=== PATIENT | female | born 1995 | race American Indian/Alaskan Native ===

== ENCOUNTER 2018-04-17 18:02 | Emergency (ER) | payer MEDICAID ==
[~2018-04-17] VITALS: Ht 157.5 cm; Wt 67.0 kg
[~2018-04-17 18:02] MED LIST: ESCI10TA45 PO; ZOF4T PO
[2018-04-17 18:53] VITALS: BP 139/75
[2018-04-17 19:08] LABS: CLARITY,URINE CLEAR (Clear); COLOR,URINE YELLOW (Yellow); GLUCOSE, URINE NEGATIVE (Neg); KETONES,URINE TRACE mg/dl (Neg); LEUKOCYTE ESTERASE ,URINE NEGATIVE (Neg); NITRITES, URINE NEGATIVE (Neg); OCCULT BLOOD,URINE TRACE-INTACT (Neg); PROTEIN,URINE NEGATIVE (Neg); UROBILINOGEN,URINE 0.2 E.U/dL (0.2-1.0)
[2018-04-17 19:09] LABS: BASOPHILS % (AUTO) 0.3 % (0-1); EOSINOPHILS # (AUTO) 0.4 X10'3 (0-0.9); EOSINOPHILS % (AUTO) 4.7 % (0-6); HEMATOCRIT 39.1 % (35.0-45.0); HEMOGLOBIN 13.5 g/dl (12.0-16.0); LYMPHOCYTES # (AUTO) 3.2 X10'3 (1.1-4.8); LYMPHOCYTES % (AUTO) 36.6 % (21-51); MEAN CORPUSCULAR HEMOGLOBIN 31.5 PG (27.0-31.0); MEAN CORPUSCULAR HGB CONC 34.5 % (33.0-36.5); MEAN CORPUSCULAR VOLUME 91.4 FL (78-98); MEAN PLATELET VOLUME 8.9 FL (7.4-10.4); MONOCYTES # (AUTO) 0.8 X10'3 (0-0.9); MONOCYTES % (AUTO) 9.1 % (2-12); NEUTROPHILS # (AUTO) 4.3 X10'3 (1.8-7.7); NEUTROPHILS % (AUTO) 49.3 % (42-75); PLATELET COUNT 186 X10'3 (140-440); RED BLOOD COUNT 4.28 X10'6 (4.20-5.60); RED CELL DISTRIBUTION WIDTH 12.1 % (11.5-14.5); WHITE BLOOD COUNT 8.8 X10'3 (4.5-11.0)
[2018-04-17 19:16] LABS: BACTERIA,URINE NONE SEEN /HPF (Neg); CAL OXALATE CRYSTALS 2+ /HPF (NEGATIVE); RBC,URINE 0-2 /HPF (0-2); SQUAMOUS EPITHELIAL CELL,UR FEW /LPF (FEW); UA COLLECTION TYPE CLN CATCH MIDSTREAM; WBC,URINE NONE SEEN /HPF (0-4)
[2018-04-17 19:25] LABS: ALANINE AMINOTRANSFERASE 24 U/L (12-78); ALBUMIN 3.6 G/DL (3.4-5.0); ALKALINE PHOSPHATASE 60 IU/L (46-116); ANION GAP 6 (8-16); ASPARTATE AMINO TRANSFERASE 14 U/L (10-37); BILIRUBIN,TOTAL 0.3 MG/DL (0.1-1.0); BLOOD UREA NITROGEN 12 MG/DL (7-18); BUN/CREATININE RATIO 19.4 (6.6-38.0); CALCIUM 8.6 MG/DL (8.5-10.1); CHLORIDE 104 MMOL/L (99-107); CREATININE 0.62 MG/DL (0.40-0.90); GLUCOSE 94 MG/DL (70-104); POTASSIUM 3.5 MMOL/L (3.5-5.1); SODIUM 139 MMOL/L (135-145); TOTAL CARBON DIOXIDE 28.7 MMOL/L (24-32); TOTAL PROTEIN 7.1 G/DL (6.4-8.2); eGFR > 90 ML/MIN
[2018-04-17 19:34] LABS: PROTHROMBIN TIME 9.9 SECONDS (9.0-12.0)
[2018-04-17 19:34] LABS: URINE HCG NEGATIVE (NEG)
[2018-04-17] MEDS ORDERED: ketorolac trometh inj. 60 MG/2 ML VIAL IM ONE (20:35)
== END 2018-04-17 22:16 | disposition home or self-care (01) ==
LOC: ER 18:03
DX: R10.32 Left lower quadrant pain (principal); J45.909 Unspecified asthma, uncomplicated; Z79.899 Other long term (current) drug therapy
CPT/HCPCS: 36415; 76830; 76856; 80053; 81001; 81025; 85025; 85610; 96372; 99285; J1885

== ENCOUNTER → 2019-11-11 | Emergency (ER) | payer MEDICAID ==
[~2019-11-11] VITALS: Ht 61 cm; Wt 80.0 kg
[~2019-11-11] MED LIST changes: +BENZ-16 PO; +PRED20TA PO; +ipratropium/albuterol 3ml nebule NEB ONE; +predniSONE 20 mg tablet PO ONE
[2019-11-11 15:44] VITALS: BP 126/87
== END | disposition home or self-care (01) ==
LOC: ER 15:31
DX: J45.901 Unspecified asthma with (acute) exacerbation (principal); J06.9 Acute upper respiratory infection, unspecified; F17.200 Nicotine dependence, unspecified, uncomplicated; Z79.899 Other long term (current) drug therapy
CPT/HCPCS: 94640; 99283; J7512; 94760

== ENCOUNTER 2020-10-05 13:00 | Emergency (ER) | payer MEDICAID ==
[~2020-10-05] VITALS: Ht 157.5 cm; Wt 75.9 kg
[~2020-10-05 13:00] MED LIST changes: -BENZ-16 PO; -PRED20TA PO; -ipratropium/albuterol 3ml nebule NEB ONE; -predniSONE 20 mg tablet PO ONE
[2020-10-05 13:04] VITALS: BP 131/87
== END 2020-10-05 17:34 | disposition left against medical advice (07) ==
LOC: ER 13:01
DX: F41.9 Anxiety disorder, unspecified (principal); Z53.21 Procedure and treatment not carried out due to patient leaving prior to being seen by health care provider

== ENCOUNTER 2022-03-17 18:28 | Emergency (ER) | payer MEDICAID ==
[~2022-03-17] VITALS: Ht 157.5 cm; Wt 82.1 kg
[2022-03-17 18:30] VITALS: BP 151/85
== END 2022-03-17 19:18 | disposition home or self-care (01) ==
LOC: ER 18:29
DX: R42 Dizziness and giddiness (principal); F41.0 Panic disorder [episodic paroxysmal anxiety]; E06.9 Thyroiditis, unspecified; J45.909 Unspecified asthma, uncomplicated; Z79.899 Other long term (current) drug therapy
CPT/HCPCS: 99281

== ENCOUNTER 2022-04-15 11:15 | Emergency (ER) | payer MEDICAID ==
[~2022-04-15] VITALS: Ht 157.5 cm; Wt 72.7 kg
[2022-04-15 11:30] VITALS: BP 131/75
[2022-04-15] MEDS ORDERED: ALBU6.7H9 INH (12:46)
== END 2022-04-15 13:22 | disposition home or self-care (01) ==
LOC: ER 11:15
DX: J45.909 Unspecified asthma, uncomplicated (principal); J06.9 Acute upper respiratory infection, unspecified; E03.9 Hypothyroidism, unspecified
CPT/HCPCS: 71046; 99283